=== PATIENT | male | born 1980 | race Hispanic/Latino ===

== ENCOUNTER 2016-08-10 04:33 | Emergency (ER) | payer MEDICAID, MEDICARE ==
[~2016-08-10] VITALS: Ht 180.3 cm; Wt 81.6 kg
[~2016-08-10 04:33] MED LIST: NORVIR100 MG ORAL; PREZISTA400 MG ORAL; REGLAN5 MG ORAL; TRUVADA1 TAB ORAL; ZOFRAN4 M1 ORAL; ZOVIRAX800 MG ORAL
[2016-08-10 04:35] VITALS: BP 140/84
[2016-08-10] MEDS ORDERED: Morphine Sulfate 4mg/ml Inj IVP ONE (04:45)
--- NOTE | 2016-08-10 05:06 | Emergency Room Report ---
History of Present Illness General Chief Complaint: Chest Pain Source: Patient Present Illness HPI This is a 35-year-old male with a history of HIV. Viral load is undetectable. CD4 count of 400. He presents with left upper chest pain for the last few hours. Denies any fever or chills. One episode vomiting. [place] No diaphoresis. No exertional component. Pain is 5/10. No radiation. Was given aspirin and nitroglycerin. No relief. Allergies: Coded Allergies: No Known Allergies (Unverified , 07/09/14) Patient History Past Medical History: see triage record, old chart reviewed, HIV Past Surgical History: none Pertinent Family History: none Social History: Reports: drug use - Immunizations: other Reviewed Nursing Documentation: PMH: Agreed, PSxH: Agreed Nursing Documentation-PMH Past Medical History: No History, Except For Hx Cardiac Problems: No - HIV Hx Cancer: No Hx Gastrointestinal Problems: No Hx Neurological Problems: No Review of Systems Eye: Denies: blurred vision, eye pain ENT: Denies: ear pain, nose congestion, throat swelling Respiratory: Denies: cough, shortness of breath Cardiovascular: Reports: chest pain, Denies: palpitations Gastrointestinal: Denies: abdominal pain, diarrhea, nausea, vomiting Musculoskeletal: Denies: back pain, joint pain Skin: Denies: rash Neurological: Denies: headache, numbness Endocrine: Denies: increased thirst, increased urine Hematologic/Lymphatic: Denies: easy bruising All Other Systems: negative except mentioned in HPI Physical Exam Vital Signs Date Time Temp Pulse Resp B/P Pulse Ox O2 Delivery O2 Flow Rate FiO2 08/10/16 04:33 98.1 85 17 150/84 99 Room Air vitals normal except for hypertension Sp02 EP Interpretation: reviewed, normal General Appearance: well appearing, no apparent distress, alert Head: normocephalic, atraumatic Eyes: bilateral eye EOMI, bilateral eye PERRL ENT: hearing grossly normal, normal pharynx Neck: full range of motion, supple, no meningismus Respiratory: chest non-tender, lungs clear, normal breath sounds Cardiovascular #1: regular rate, rhythm, no murmur Gastrointestinal: normal bowel sounds, non tender, no mass, no organomegaly, no bruit, non-distended Musculoskeletal: back normal, gait/station normal, normal range of motion Psychiatric: mood/affect normal Skin: warm/dry Medical Decision Making Diagnostic Impression: Primary Impression: Chest pain Qualified Codes: R07.9 - Chest pain, unspecified Additional Impressions: N&V (nausea and vomiting) Qualified Codes: R11.2 - Nausea with vomiting, unspecified Methamphetamine abuse ER Course Patient presents with atypical chest pain. Most likely secondary to drug abuse. He admits to using methamphetamine tonight. No evidence of ACS, PE, dissection. We'll discharge home. Lab Results Impression labs unremarkable EKG Diagnostic Results Rate: normal Rhythm: NSR ST Segments: no acute changes Rhythm Strip Diag. Results EP Interpretation: yes Rate: 80 Rhythm: NSR, no PVC's, no ectopy Chest X-Ray Diagnostic Results EP Interpretation: Yes Findings: no consolidation, no effusion, no pneumothorax, no acute cardiopulmonary disease Number of Views: 1 Last Vital Signs Date Time Temp Pulse Resp B/P Pulse Ox O2 Delivery O2 Flow Rate FiO2 08/10/16 04:33 98.1 85 17 150/84 99 Room Air Status: improved Disposition: HOME, SELF-CARE Condition: Stable Patient Instructions: Nonspecific Chest Pain Additional Instructions: Stop using drugs. Followup your Dr. in 2-3 days. Return if worse. SAMARA SEPULVEDA M.D. Aug 10, 2016 05:06
[2016-08-10 05:22] LABS: MEAN CORPUSCULAR HEMOGLOBIN 31.3 PG (27.0-31.0); MEAN CORPUSCULAR HGB CONC 33.4 G/DL (32.0-36.0); MEAN CORPUSCULAR VOLUME 94 FL (80-99); MEAN PLATELET VOLUME 10.6 FL (6.5-10.1); PLATELET COUNT 214 K/UL (150-450); RED BLOOD COUNT 4.17 M/UL (4.70-6.10); RED CELL DISTRIBUTION WIDTH 12.9 % (11.6-14.8); WHITE BLOOD COUNT 3.2 K/UL (4.8-10.8)
[2016-08-10 05:30] VITALS: BP 136/87
[2016-08-10 06:04] LABS: ALANINE AMINOTRANSFERASE 26 U/L (3-41); ALBUMIN/GLOBULIN RATIO 0.6 (1.0-2.7); ANION GAP 14 (5-15); ASPARTATE AMINO TRANSFERASE 38 U/L (5-40); CALCIUM 8.9 mg/dL (8.6-10.2); CARBON DIOXIDE 22 mEQ/L (20-30); CHLORIDE 104 mEQ/L (98-107); CREATININE 1.1 mg/dL (0.7-1.2); GLOMERULAR FILTRATION RATE > 60 mL/min (>60); HEMOLYSIS 8; POTASSIUM 3.7 mEQ/L (3.4-4.9); SODIUM 140 mEQ/L (135-145); TOTAL PROTEIN 8.7 g/dL (6.6-8.7)
[2016-08-10 06:11] VITALS: BP 129/87
[2016-08-10 06:28] LABS: TROPONIN I < 0.30 ng/mL (<=0.30)
[2016-08-10 06:44] VITALS: BP 135/86
[2016-08-10 06:59] LABS: CKMB 5.6 ng/mL (< 6.7)
[2016-08-10 08:42] LABS: LYMPHOCYTES % (MANUAL) 47 % (20-45); NEUTROPHILS % (MANUAL) 45 % (45-75); TOTAL CELLS COUNTED 100
[2016-08-10 08:43] LABS: BAND NEUTROPHILS % (MANUAL) 0 % (0-8); BASOPHILS % (MANUAL) 0 % (0-2); EOSINOPHILS % (MANUAL) 0 % (0-3); PLATELET ESTIMATE ADEQUATE; PLATELET MORPHOLOGY NORMAL
--- NOTE | 2016-08-10 12:04 | Diagnostic Imaging Report ---
Indication: CP Technique: One view of the chest Comparison: none Findings: Lungs and pleural spaces are clear. Heart size is upper limits of normal. Impression: No acute process
--- NOTE | 2016-08-11 12:56 | Cardiology Report ---
APPROVED REPORT EKG Measurement Heart [id number] SD 160P40 [id number] Normal sinus rhythm Normal ECG
== END 2016-08-10 06:44 | disposition home or self-care (01) ==
LOC: EDBD 04:33 → EMR 06:10
DX: R07.9 Chest pain, unspecified (principal); R11.2 Nausea with vomiting, unspecified; F15.10 Other stimulant abuse, uncomplicated
CPT/HCPCS: 36415; 71010; 80053; 82550; 82553; 84484; 85007; 85025; 93005; 96374; 96375; 99284; J2270; J2405